=== PATIENT | female | born 1980 | race Caucasian/White ===

== ENCOUNTER 2017-02-03 10:57 | Outpatient (CLI) | payer BC ==
[2016-03-24 07:25] VITALS: O2SAT 99
[2017-02-03 12:55] LABS: BASOPHILS % (AUTO) 2 % (0-3); EOSINOPHILS % (AUTO) 2 % (0-9); HEMATOCRIT 40 % (35-47); MEAN CORPUSCULAR HGB CONC 34.6 gm/dl (32.0-36.0); MEAN CORPUSCULAR VOLUME 88 fL (81-99); MONOCYTES % (AUTO) 6.2 % (0-12); NEUTROPHILS % (AUTO) 60.9 % (37-80)
== END 2017-02-03 10:58 | disposition home or self-care (01) ==
LOC: CONVCARE 10:57
PROVIDERS: ATTEND Orthopaedic Surgery
DX: M25.571 Pain in right ankle and joints of right foot (principal); M25.552 Pain in left hip
CPT/HCPCS: 36415; 73610; 84550; 85025; 85651